=== PATIENT | male | born 1965 | race Caucasian/White ===

== ENCOUNTER → 2016-12-09 | Outpatient (CLI) | payer BC ==
[~2016-12-09] MED LIST: ATOR-24 PO; B-COCAP2 PO; ERGO1CAP35 PO; FURO80TA63 PO; LEVO50TA PO; LORA-741 PO; METO50TA16 PO; PANT40TA PO; SEVE800T7 PO; TRAM-10 PO
[2016-12-09 13:58] LABS: CHOLESTEROL/HDL RATIO 4.8; THYROID STIMULATING HORMONE 1.69 uIu/ml (0.300-4.500)
== END | disposition home or self-care (01) ==
LOC: C.LABMFLN 11:49
PROVIDERS: ATTEND Family Medicine
DX: E78.5 Hyperlipidemia, unspecified (principal)

== ENCOUNTER → 2017-02-24 | Outpatient (CLI) | payer BC ==
[2017-02-24 14:17] LABS: CHOLESTEROL/HDL RATIO 6.1
== END | disposition home or self-care (01) ==
LOC: C.LABMFLN 10:16
PROVIDERS: ATTEND Family Medicine
DX: E78.5 Hyperlipidemia, unspecified (principal)